=== PATIENT | male | born 1945 | race Caucasian/White ===

== ENCOUNTER → 2017-08-15 | Outpatient (CLI) | payer MEDICARE ==
[~2017-08-15] MED LIST: ATIVAN GENERIC 11 MG PO; BYSTOLIC20 MG PO; COLCRYS0.6 M1 PO; FOLIC ACID1 MG PO; HYDROCHLOROTHIA25 M1 PO; MULTI VITAMINS1 TA1 PO; RAMIPRIL10 MG PO; SPIRIVA HA1 PUFF/INH IH; VENTOLIN H0.09 MG/Ac IH
[2017-08-15 13:06] LABS: BUN 8 mg/dL (7-18); GFR (ESTIMATED) 95 ML/MIN (>60)
--- NOTE | 2017-08-15 15:22 | RADIOLOGY REPORT PS360 ---
EXAM: CT LUNG LOW DOSE WO CONTRAST COMPARISON: None HISTORY: 71-year-old male asymptomatic with greater than 30 pack-year smoking history ORDERING PHYSICIAN: Marek Lyons MD PATIENT AGE: 71 years TECHNIQUE: The exam was performed on a GE Light Speed [address] scanner using 2.95 mGy CTDI. A low dose helical CT CHEST was performed on a multi-detector scanner The LDCT was performed in a facility that meets the criteria for the screening program. Data regarding this exam was submitted to [employer] which is an approved registry. The order for this exam indicates that it came as a result of a lung cancer screening counseling shard decision-making visit that included all the elements required of such a visit including smoking cessation. The radiologist interpreting this exam meets the [facility] criteria for the LDCT lung cancer screening program. The exam is reported using the Lung-RADS classification scale and reported to the ACR registry. NOTE: This study was performed for the specific purposes of lung cancer screening and is not an alternative to diagnostic chest CT. RADIATION DOSE: CTDI vol(CT dose Index-volume) = 2.95mG DLP (Dose Length Product) = 112.5 to mGcm FINDINGS: There are biapical fibrotic changes with centrilobular emphysematous change incidental note made of gynecomastia. Calcified granuloma is present in the right middle lobe. There are calcified nodes in the abena. No suspicious pulmonary nodules are evident. Atelectatic or fibrotic changes are present in the right lung base along the major fissure There is diffuse bronchial thickening in the lower lobes mild diffuse narrowing of the right lower lobe bronchi. Coronary artery calcification present. IMPRESSION: 1. Lung RADS Category: 2, benign 2. Other findings: COPD bronchial thickening and scattered areas of fibrosis with evidence of old granulomatous disease. RECOMMENDATIONS: Annual screening LDCT
--- NOTE | 2017-08-18 10:47 | RADIOLOGY REPORT PS360 ---
CT SOFT TISSUE NECK W/CONTRAST INDICATION: PHARYNGEAL MALIGNANT NEOPLASM,H/O NICCOTINE DEPENDENCE ORDERING PHYSICIAN: Marek Loyns MD PATIENT AGE: 71 years COMPARISON: None TECHNIQUE: Axial images are obtained following the intravenous administration of 75 mL Isovue-[id number]. Contrast. Sagittal and coronal reformatted images are reviewed as well. FINDINGS: There is a heterogeneous soft tissue mass showing variable peripheral enhancement and decreased attenuation centrally consistent with a necrotic mass/neoplasm extending from the right nasopharyngeal region, right oral pharynx, and right hypopharynx with the inferior aspect of the mass involving the right area epiglottic fold and into the base of the epiglottis. It is difficult to determine the exact margins of the mass for accurate measurements. The cephalad to caudad extension is best seen on the sagittal view it measures 7 cm. The maximum AP dimension of the lesion is 4.3 cm in maximum transverse dimension is 4.6 cm. There is extension into the parapharyngeal fat planes. The uvula is enlarged and there is involvement of the right parapharyngeal tonsils. The nasopharyngeal airway is extremely narrowed. There may be involvement of the base of the tongue at least on the right. Suspect involvement also of the pterygoid muscles. There are scattered small lymph nodes in the neck on both sides. There is near complete opacification of the right maxillary sinus and moderate mucosal thickening left maxillary sinus. 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 There is invasion of adjacent parapharyngeal soft tissue planes suspected.. There may also be invasion of the base of the time.
== END ==
LOC: RAD 12:46
PROVIDERS: Family Medicine
DX: C14.0 Malignant neoplasm of pharynx, unspecified (principal); Z87.891 Personal history of nicotine dependence; Z12.2 Encounter for screening for malignant neoplasm of respiratory organs
CPT/HCPCS: G0297; Q9967